=== PATIENT | female | born 1965 | race Caucasian/White ===

== ENCOUNTER 2018-05-04 12:35 | Observation (INO) | payer OTHER ==
[2018-05-04] MEDS: NS 0.9% 1000 ML* 2,000 ML IV ONE (13:03)
[2018-05-04 13:14] LABS: Hematocrit 41 % (35-47); Hemoglobin 14.1 g/dl (12.0-16.0); Mean Corpuscular HGB Conc 35 g/dl (31-36); Mean Corpuscular Hemoglobin 33 pg (27-31); Mean Corpuscular Volume 95 fL (80-97); Mean Platelet Volume 8.3 um3 (7.4-10.4); Platelet Count 162 10^3/ul (150-450); Red Blood Count 4.28 10^6/ul (4.0-5.4); Red Cell Distribution Width 14 % (10.5-15); White Blood Count 5.1 10^3/ul (3.5-10.8)
[2018-05-04 13:30] LABS: EGFR Non-African American 29.5 (>60)
[2018-05-04 13:38] LABS: ABS Basophils 0 10^3/ul (0-0.2); ABS Eosinophils 0 10^3/ul (0-0.6); ABS Lymphocytes 0.2 10^3/ul (1.0-4.8); ABS Monocytes 0 10^3/ul (0-0.8); ABS Neutrophils 4.8 10^3/ul (1.5-7.7)
[2018-05-04 13:40] LABS: Monocytes % 1 % (0-7)
--- NOTE | 2018-05-04 15:25 | RAD ---
CLINICAL HISTORY: Abdominal pain with nausea and vomiting COMPARISON: None TECHNIQUE: Oral contrast only CT examination of the abdomen and pelvis from the lung bases through the initial tuberosities. FINDINGS: VISUALIZED LUNG BASES: The visualized lung bases are grossly clear. There is no pleural effusion. ABDOMEN AND PELVIS: Evaluation of the solid organs and vasculature is limited without intravenous contrast. The liver exhibits homogenous hypoattenuation relative to the spleen. There are no focal masses or definite intrahepatic biliary duct dilatation. The spleen, pancreas and adrenal glands are grossly normal in appearance. The gallbladder is normal. The kidneys are normal in appearance without focal mass, calcification or signs of hydronephrosis. The oral contrast has progressed as far as the cecum. This limits evaluation of the more distal colon. The small and large bowel are not distended.The fluid-filled appendix measures just under 12 mm in diameter (axial image 48 and coronal image 57). There is infiltration of the surrounding periappendiceal mesenteric fat with trace fluid. There is no gross retroperitoneal or mesenteric lymphadenopathy. An intrauterine device is incidentally noted in appropriate position. The abdominal aorta and iliac arteries are normal in course and diameter. Degenerative changes include multilevel loss of intervertebral disc height involving the lower thoracic and lumbar spine, endplate sclerosis and vacuum disc phenomenon involving the lower lumbar spine.There are no sinister bone lesions. IMPRESSION: 1. CT findings are consistent with acute appendicitis. 2. Possible hepatic steatosis.
[2018-05-04] MEDS ORDERED: NS 0.9% 1000 ML* 2,000 ML IV ONE (16:00)
[2018-05-04] MEDS ORDERED: Piperacillin/Tazobac ADVAN(*) 3.375 GM in NS 0.9% 100 ML* 100 ML IVPB ONE (16:02)
[2018-05-04] MEDS: KCL 10 MEQ/50 ML IVPREMIX* 10 MEQ/50 ML BAG IV SCH ×3 (16:18→17:59)
[2018-05-04] MEDS ORDERED: Morphine VIAL* 4 MG/ML VIAL (1 ml vial) IV PRN (17:01)
[2018-05-04] MEDS ORDERED: Metoclopramide IV* 5 MG/ML 2 ML VIAL IV PRN (17:02)
[2018-05-04] MEDS ORDERED: Magnesium Sulfate 1 GM IV* 1 GM/100 ML BAG IV ONE (17:13)
[2018-05-04] MEDS: NS 0.9% 1000 ML* 1,000 ML IV SCH (17:56)
[2018-05-04] MEDS ORDERED: ceFAZolin 2 GM PREMIX (*) 2 GM/50 ML BAG IVPB ONE (19:30)
[2018-05-04] MEDS ORDERED: Bupivacaine 0.25% SDV* 30 ML ONE (19:43)
[2018-05-04] MEDS ORDERED: metroNIDAZOLE IV 500 MG/100ML* 500 MG/100 ML BAG IVPB ONE (20:00)
[2018-05-04] MEDS ORDERED: Atracurium* 10 MG/ML 10 ML VIAL ONE (20:04)
[2018-05-04] MEDS ORDERED: Succinylcholine* 20 MG/ML 10 ML VIAL ONE (20:04)
[2018-05-04] MEDS ORDERED: fentaNYL* 50 MCG/ML 2 ML VIAL (100 MCG VIAL) ONE ×2 (20:04→21:42)
[2018-05-04] MEDS ORDERED: Midazolam* 1 MG/ML 2 ML VIAL (2 MG) ONE (20:04)
[2018-05-04] MEDS ORDERED: Propofol* 10 MG/ML 20 ML BTL IV PUSH ONE (20:04)
--- NOTE | 2018-05-04 20:44 | HP ---
CC: Dr. 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 The patient described onset of diarrhea starting yesterday, one episode. This turned into abdominal pain. It was diffuse. She was able to get to sleep and when she woke up in the morning, she had severe pain at the right lower quadrant and woke up with which she describes as rigors. She also had nausea and vomiting. Pain is nonradiating at this point, mostly in the right lower quadrant. The patient describes similar pain in the past, approximately October of last year , when it lasted for only a couple of hours. PAST MEDICAL HISTORY: ADD. PAST SURGICAL HISTORY: C-sections on two occasions, one emergent. MEDICATIONS: Include: 1. Dextroamphetamine. 2. Propranolol as needed. ALLERGIES: She has no known drug allergies. FAMILY HISTORY: Noncontributory. No history of ulcerative colitis or Crohn's disease. SOCIAL HISTORY: She is a nonsmoker. She occasionally drinks. She is active. She is a physician. REVIEW OF SYSTEMS: Fevers and chills as described with rigors as described above. Nausea and vomiting as described. No dysuria. Positive diarrhea yesterday. The patient is passing flatus. Decreased appetite. No bleeding or clotting disorders. No complications with anesthesia. No metabolic disorders. PHYSICAL EXAMINATION GENERAL: She is alert and oriented x3. She is in mild distress. VITAL SIGNS: The patient's temperature is 99.4, T-max is 101; heart rate is 106 with blood pressure 116/70, she did have blood pressures as low as 70s in her initial time during the ER visit; respirations are 20 with an O2 sat of 94%. HEENT: Normocephalic, atraumatic. Sclerae are anicteric. Mucous membranes are dry. LUNGS: Clear to auscultation bilaterally. HEART: S1, S2. No murmurs appreciated. ABDOMEN: Soft, nondistended. Tender in the right lower quadrant with no rebound tenderness. Well-healed lower midline incision. No hernias or masses are noted. RECTAL: Exam not performed. EXTREMITIES: Within normal limits with no edema or cyanosis. DIAGNOSTIC STUDIES/LAB DATA: Show a white count of 5 with left shift and 7 bands; reference range 0% to 8%. Chemistry panel shows an elevated CRP of 107 with bilirubin elevated at 3.5 and a potassium of 3. She had elevated lactate of 4.6, which after hydration of approximately 3 L in the emergency room went to only 4.3. Her creatinine is 1.81 and we do not have a baseline. The patient underwent a CAT scan of the abdomen and pelvis. These images as well as the report were reviewed and are consistent with acute appendicitis with a dilated inflamed appendix. There is trace free fluid. No free air or abscess appreciated. EKG is reviewed. IMPRESSION AND PLAN: A 52-year-old female with what appears to be acute appendicitis based on CT scan, abdominal exam, and story consistent with this. However, the patient does show signs of dehydration given hypokalemia as well as what appears to be acute renal failure with elevated creatinine of 1.8, which we would not anticipate in this patient. She has received significant amount of fluid including three 10 mEq K riders. I do not think she warrants repeat labs at this point. I have recommended laparoscopic appendectomy to the patient, gone over the risks, benefits, and alternatives of diagnostic laparoscopy, appendectomy. The patient wished to proceed. We spoke about the possible complications which included, not limited to, bleeding, infection, abscess formation, need for additional procedures, injury to adjacent organs, and the possibility of open procedure. The patient understands and has agreed. I did not spend too much time discussing nonoperative management given that the patient appears ill. I think she will be best served in the OR with diagnostic laparoscopy. At this point, my concern is possibility of perforation. I have outlined this possibility to the patient. She will spend the night with us. We will give her another dose of antibiotics. The patient' s questions were answered. [id number]/[facility] #: [id number] [facility]
[2018-05-04] MEDS ORDERED: Phenylephrine INJ* 10 MG/ML 1 ML VIAL (10 MG) ONE (20:55)
[2018-05-04] MEDS ORDERED: Dexamethasone IV* 4 MG/ML 1 ML (4 MG) ONE (21:07)
[2018-05-04] MEDS ORDERED: DiMENhydriNATE IV* 50 MG/ML VIAL ONE (21:09)
[2018-05-04] MEDS ORDERED: Ondansetron INJ* 2 MG/ML VIAL IV PRN (21:12)
[2018-05-04] MEDS ORDERED: Ondansetron ODT TAB* 4 MG PO PRN (21:12)
[2018-05-04] MEDS ORDERED: Naloxone* 0.4 MG/ML 1 ML VIAL IV PRN (21:12)
[2018-05-04] MEDS ORDERED: HYDROmorphone INJ* 1 MG/ML CARPUJECT SYRINGE IV PRN (21:12)
[2018-05-04] MEDS ORDERED: Scopolamine 1.5 mg* PATCH TRANSDERM PRN (21:12)
--- NOTE | 2018-05-04 21:31 | BRIEFOPN ---
Brief Operative Note - Surgery Procedures: Procedures Pre-OP Diagnoses: acute appendicitis Post-op Diagnosis: same Procedure: Laparoscopic appendectomy Surgeon: Tyrone Asst: none Anethesia: GETA EBL: 50cc IVF: 2.5L crystalloid Specimen: [id number] Drains: none
[2018-05-04] MEDS ORDERED: Acetaminophen IV 1GM/100ML * 100 ML ONE (21:38)
[2018-05-04] MEDS: fentaNYL* 50 MCG/ML 2 ML VIAL (100 MCG VIAL) IV PRN ×4 (21:43→22:35)
[2018-05-04] MEDS ORDERED: oxyCODONE/Acetamin 5/325 MG* TAB ONE (22:20)
[2018-05-04] MEDS: oxyCODONE/Acetamin 5/325 MG* TAB PO PRN (22:21)
[2018-05-05] MEDS: Piperacillin/Tazobac ADVAN(*) 3.375 GM in NS 0.9% 100 ML* 100 ML IVPB SCH ×2 (00:06→09:05)
--- NOTE | 2018-05-05 00:59 | OP ---
CC: Bartolome Wright NP * DATE OF OPERATION: 05/04/18 - ROOM #331 DATE OF : 67 SURGEON: Ry Hansen MD [employer] DIRECTOR: None. ANESTHESIOLOGIST: Jesús Aldrich MD ANESTHESIA: General anesthesia. PRE-OP DIAGNOSIS: Acute appendicitis. POST-OP DIAGNOSIS: Acute appendicitis. OPERATIVE PROCEDURE: Laparoscopic appendectomy. BLOOD LOSS: 50 cc. FLUIDS: 2.5 L of crystalloid fluid given. SPECIMEN: Appendix, nonperforated. DRAINS: None. DESCRIPTION OF PROCEDURE: The patient was identified in the preoperative area, marked, and brought to the operating room and placed on the operating table in the supine position. Preoperative antibiotics were given. Sequential devices were placed on bilateral lower extremities. General anesthesia was induced. The patient's abdomen was clipped of hair and prepped and draped in a standard surgical fashion. Time-out was performed. A subcostal incision was made in the right upper quadrant about 2 fingerbreadths below the costal margin in the mid clavicular line. This was deepened down to the anterior fascia, which was elevated and a Veress needle was inserted into the abdominal cavity, which was then allowed to insufflate to a pressure of 15 mmHg. The patient tolerated the insufflation well. Veress needle was removed and a 12-mm trocar was inserted. The laparoscope was inserted through this and there was no evidence of injury from the trocar insertion or from the Veress needle. Additional trocars were then placed in the following position: A 5 mm in the periumbilical region. The patient was placed in a Trendelenburg position. There was murky fluid noted in the abdomen and additional 5-mm trocar was placed in a suprapubic position. Table was repositioned. A tip of an inflamed appendix was clearly identified. This was shortened, but thickened appendix that extended into an area between cecum and small bowel. Small bowel was reflected superiorly and lateral attachments were taken down with both sharp dissection and blunt dissection to identify better the lateral aspect of the cecum. This was then grasped and rotated medially. At this point, we could see the base of the appendix and a window was made through the mesentery, which was then taken with a 45-mm gillette JC stapling device. This allowed us to pull the inflamed but nonperforated appendix up more anteriorly. Additional mesoappendix was isolated and clipped with a large 10-mm clip. We then had a good area of the appendix with normal- appearing base and a 45-mm gillette JC stapling device was fired across this, taken care to not violate the area of the terminal ileum. The appendix was then placed in an endoscopic retrieval bag. There was some oozing, this was suctioned off, no identifiable bleeders were noted. We suctioned over the liver as well in the area of the pelvis. Right fallopian tube was identified; within normal limits. Next, the small bowel was run approximately 60 cm proximal to the terminal ileum. This appeared normal and intact. Next, the table was repositioned back to baseline and the appendix was removed through the right upper quadrant 12-mm port site. Next, the abdomen was allowed to collapse. Trocar was removed under direct vision. Upon removal, the periumbilical incision showed significant amount of bleeding, felt to be too much for just a skin bleeder. A 5-mm trocar was reinserted into the right upper quadrant port site and we could see there was bleeding around the site. We utilized an Endo Close device using a 0 Polysorb suture to reapproximate the fascia at this periumbilical site and for hemostasis. Hemostasis was achieved. The abdomen again was allowed to collapse. The trocar was removed and then all 3 skin incisions were reapproximated with 4-0 Monocryl subcuticular sutures. Steri-Strips and sterile dressing were applied. The patient tolerated the procedure well, was woken up in the OR and transferred to the PACU in stable condition. It should be noted that I did identify a small, approximately 1-cm hernia along the lower midline when we were placing the Endo Close device. This did not appear to have any contents and it was left alone. [id number]/[facility] #: [id number] [facility]
[2018-05-05] MEDS: oxyCODONE/Acetamin 5/325 MG* TAB PO PRN ×2 (01:48→07:30)
[2018-05-05] MEDS: NS 0.9% 1000 ML* 1,000 ML IV SCH (04:55)
[2018-05-05 05:35] LABS: Hematocrit 35 % (35-47); Hemoglobin 11.5 g/dl (12.0-16.0); Mean Corpuscular HGB Conc 33 g/dl (31-36); Mean Corpuscular Hemoglobin 32 pg (27-31); Mean Corpuscular Volume 97 fL (80-97); Mean Platelet Volume 8.9 um3 (7.4-10.4); Platelet Count 134 10^3/ul (150-450); Red Blood Count 3.61 10^6/ul (4.0-5.4); Red Cell Distribution Width 14 % (10.5-15); White Blood Count 14.9 10^3/ul (3.5-10.8)
[2018-05-05 05:42] LABS: ABS Basophils 0 10^3/ul (0-0.2); ABS Eosinophils 0 10^3/ul (0-0.6); ABS Lymphocytes 0.5 10^3/ul (1.0-4.8); ABS Monocytes 0.4 10^3/ul (0-0.8)
[2018-05-05 05:53] LABS: EGFR Non-African American 60.5 (>60)
[2018-05-05 06:23] LABS: ABS Nucleated RBC 0 10^3/ul; Eosinophil % 0 % (0-6); Lymphocyte % 3.4 % (25-47); Nucleated Red Blood Cells % 0
[2018-05-05] MEDS: Amphetamine MIXED SALT TAB* 10 MG TAB PO SCH ×2 (09:05→09:08)
[2018-05-05 09:58] VITALS: BP 89/61
--- NOTE | 2018-05-05 12:22 | DS ---
CC: [facility]; Bartolome Wright DISCHARGE SUMMARY: DATE OF ADMISSION: 05/04/18 DATE OF DISCHARGE: 05/05/18 HISTORY OF PRESENT ILLNESS: Ms. Jackman is a 52-year-old female who presented to the emergency [facility] complaints of abdominal pain, nausea, vomiting, and diarrhea, who was diagnosed with acute appendi citis based on CT scan and labs, and was taken to the operating room where she underwent a laparoscop ic appendectomy. Please see operative report for details. The patient was transferred to the PACU after a short stay in the surgical unit where she did well in the overnight period. The patient's course was complicated with elevated creatinine levels that nor malized with hydration. She also came with hypokalemia, which normalized after therapy. On postoperative day 1, physical examination was performed. She was afebrile, vital signs were stabl e, alert and oriented x3, in no apparent distress. Urine output was good. She was utilizing incenti ve spirometer. Her abdomen was soft, nondistended, with incisional tenderness. Dressings clean, dry , and intact. No calf tenderness. IMPRESSION: Postoperative day 1 from laparoscopic appendectomy with concern for a brief episode of b acteremia and a picture of systemic inflammatory response syndrome versus sepsis in a patient I would like to send home on a 5-day course of antibiotics. She will follow up in the office. This was dis cussed with her and questions were answered. [id number]/[facility] #: [id number]
--- NOTE | 2018-05-06 14:34 | ED ---
Leandro Rivera Julia, scribed for Mauro Azul MD on 05/04/18 at 1256 . Abdominal Pain/Female - HPI Summary HPI Summary: This patient is a 52 year old F presenting to [facility] accompanied by her with a chief complaint of abdominal pain since yesterday. She states that the pain began diffusely yesterday with loose stool. She states she ate a hot dog at 13:30 and vomited afterwards. Pain has worsened and localized today to the RLQ with fever, chills, and body aches. pain is 6/10 in severity. Diarrhea is currently resolved. Denies any back pain. No hx of appendectomy or cholecystectomy. - History of Current Complaint Chief Complaint: EDAbdPain Stated Complaint: ABD PAIN Time Seen by Provider: 05/04/18 12:47 Hx Obtained From: Patient Onset/Duration: Lasting Hours, Worse Since Timing: Constant Pain Intensity: 6 Pain Scale Used: 0-10 Numeric Location: Discrete At: RLQ Radiates: No Associated Signs and Symptoms: Positive: Fever, Vomiting, Diarrhea. Negative: Back Pain Allergies/Adverse Reactions: Allergies Allergy/AdvReac Type Severity Reaction Status Date / Time No Known Allergies Allergy Verified 05/04/18 12:43 Home Medications: Home Medications Cholecalciferol TAB* [Vitamin D TAB*] 15,000 unit PO SUWE 05/04/18 [History Confirmed 05/04/18] Dextroamphetamine/Amphetamine [Dextroamp-Amphetamin 10 mg Tab] 10 mg PO BID 09/11 [History Confirmed 05/04/18] Ibuprofen TAB* [Motrin TAB* 600 MG] 600 mg PO Q6H PRN 05/04/18 [History Confirmed 05/04/18] Propranolol TAB* [Inderal TAB*] 80 mg PO DAILY PRN 05/04/18 [History Confirmed 05/04/18] PMH/Surg Hx/FS Hx/Imm Hx Endocrine/Hematology History: Reports: Hx Diabetes EENT History: Denies: Hx Deafness - Surgical History Surgery Procedure, Year, and Place: hysterectomy Infectious Disease History: No Infectious Disease History: Denies: History Other Infectious Disease, Traveled Outside the [place] in Last 30 Days - Family History Known Family History: Negative: Diabetes - Social History Alcohol Use: Rare Substance Use Type: Reports: None Smoking Status (MU): Never Smoked Tobacco Review of Systems Positive: Fever, Chills Positive: Abdominal Pain, Vomiting, Diarrhea Musculoskeletal: Negative - back pain Positive: Myalgia All Other Systems Reviewed And Are Negative: Yes Physical Exam - Summary Physical Exam Summary: VITAL SIGNS: Reviewed. GENERAL: Patient is a well-developed and nourished female who is lying comfortable in the stretcher. Patient is not in any acute respiratory distress. HEAD AND FACE: No signs of trauma. No ecchymosis, hematomas or skull depressions. No sinus tenderness. EYES: PERRLA, EOMI x 2, No injected conjunctiva, no nystagmus. EARS: Hearing grossly intact. Ear canals and tympanic membranes are within normal limits. MOUTH: Oropharynx within normal limits. NECK: Supple, trachea is midline, no adenopathy, no JVD, no carotid bruit, no c- spine tenderness, neck with full ROM. CHEST: Symmetric, no tenderness at palpation LUNGS: Clear to auscultation bilaterally. No wheezing or crackles. CVS: Regular rate and rhythm, S1 and S2 present, no murmurs or gallops appreciated. ABDOMEN: Soft RLQ tenderness. No signs of distention. No rebound no guarding, and no masses palpated. Bowel sounds are normal. EXTREMITIES: FROM in all major joints, no edema, no cyanosis or clubbing. NEURO: Alert and oriented x 3. No acute neurological deficits. Speech is normal and follows commands. SKIN: Dry and warm Triage Information Reviewed: Yes Vital Signs On Initial Exam: Initial Vitals Temp Pulse Resp BP Pulse Ox 97.4 F 105 17 78/40 97 05/04/18 12:38 05/04/18 12:38 05/04/18 12:38 05/04/18 12:38 05/04/18 12:38 Vital Signs Reviewed: Yes Diagnostics - Vital Signs Vital Signs Temp Pulse Resp BP Pulse Ox 05/04/18 12:38 97.4 F 105 17 78/40 97 - Laboratory Lab Results: Lab Results 05/04/18 05/04/18 05/04/18 Range/Units 13:05 13:05 13:05 WBC 5.1 (3.5-10.8) 10^3/ul RBC 4.28 (4.0-5.4) 10^6/ul Hgb 14.1 (12.0-16.0) g/dl Hct 41 (35-47) % MCV 95 (80-97) fL MCH 33 H (27-31) pg MCHC 35 (31-36) g/dl RDW 14 (10.5-15) % Plt Count 162 (150-450) 10^3/ul MPV 8.3 (7.4-10.4) um3 Neut % (Auto) Not Reportable Lymph % (Auto) Not Reportable [place] % (Auto) Not Reportable Eos % (Auto) Not Reportable Baso % (Auto) Not Reportable Absolute Neuts (auto) 4.8 (1.5-7.7) 10^3/ul Absolute Lymphs (auto) 0.2 L (1.0-4.8) 10^3/ul Absolute Monos (auto) 0 (0-0.8) 10^3/ul Absolute Eos (auto) 0 (0-0.6) 10^3/ul Absolute Basos (auto) 0 (0-0.2) 10^3/ul Absolute Nucleated RBC Not Reportable Immature Gran % 7 (0-9) % Neutrophils % 89 H (38-83) % Band Neutrophils % 7 (0-8) % Lymphocytes % 3 L (25-47) % Monocytes % 1 (0-7) % Eosinophils % 0 (0-6) % Basophils % 0 (0-2) % Nucleated RBC % Not Reportable Abs Neuts (Manual) 4.5 (1.5-7.7) 10^3/ul Abs Lymphs (Manual) 0.2 L (1.0-4.8) 10^3/ul Abs Monocytes (Manual) 0.1 (0-0.8) 10^3/ul Absolute Eos (Manual) 0 (0-0.6) 10^3/ul Abs Basophils (Manual) 0 (0-0.2) 10^3/ul Normal RBC Morphology Normal (Normal) Sodium 134 L (139-145) mmol/L Potassium 3.0 L (3.5-5.0) mmol/L Chloride 100 L (101-111) mmol/L Carbon Dioxide 23 (22-32) mmol/L Anion Gap 11 (2-11) mmol/L BUN 11 (6-24) mg/dL Creatinine 1.81 H (0.51-0.95) mg/dL Est GFR ( Amer) 37.9 (>60) Est GFR (Non-Af Amer) 29.5 (>60) BUN/Creatinine Ratio 6.1 L (8-20) Glucose 126 H (70-100) mg/dL Lactic Acid 4.6 H* (0.5-2.0) mmol/L Calcium 9.5 (8.6-10.3) mg/dL Magnesium 1.3 L (1.9-2.7) mg/dL Total Bilirubin 3.50 H (0.2-1.0) mg/dL AST 36 (13-39) U/L ALT 31 (7-52) U/L Alkaline Phosphatase 102 (34-104) U/L C-Reactive Protein 107.34 H (< 5.00) mg/L Total Protein 6.6 (6.4-8.9) g/dL Albumin 3.7 (3.2-5.2) g/dL Globulin 2.9 (2-4) g/dL Albumin/Globulin Ratio 1.3 (1-3) Lipase 43 (11.0-82.0) U/L Result Diagrams: 05/05/18 05:05 05/05/18 05:05 Lab Statement: Any lab studies that have been ordered have been reviewed, and results considered in the medical decision making process. - CT A/P CT Interpretation Completed By: Radiologist - 1. CT findings are consistent with acute appendicitis. 2. Possible hepatic steatosis. ED Physician has reviewed this report. - EKG 1315 Cardiac Rate: NL EKG Rhythm: Sinus Rhythm - 84 BPM EKG Interpretation: no ST elevation, inverted T wave in III Abdominal Pain Fem Course/Dx - Course Course Of Treatment: 52 year old F presenting to [facility] accompanied by her with a chief complaint of abdominal pain since yesterday. She states that the pain began diffusely yesterday with loose stool and vomiting. Pain has worsened and localized today to the RLQ with fever, chills, and body aches. pain is 6/10 in severity. Diarrhea is currently resolved. Denies any back pain. No hx of appendectomy or cholecystectomy. CT A/P reveals, " 1. CT findings are consistent with acute appendicitis. 2. Possible hepatic steatosis. ED Physician has reviewed this report." as per radiologist. EKG reveals no acute findings. Test results without significant abnormalities except sodium of 134, Potassium of 3.0, creatinine 1.81, glucose 126, lactic acid of 4.6, magnesium 1.3, and CRP 107.34. Patient initially given 2L of IV fluids since patient was hypotensive; she responded well and blood pressure improved to 110/60. She was also given IV Potassium, Magnesium IV and Zosyn, since elevated lactic acid. She became hypotensive again and he placed in Trendelenberg and given more IV fluids. Discussed case with Dr. Hansen for surgery, he accepts this patient for admission. At this time she is hemodynamicably stable and is alert and oriented x3. - Diagnoses Provider Diagnoses: Acute appendicitis - Provider Notifications Discussed Care Of Patient With: Ry Hansen - surgery Time Discussed With Above Provider: 16:44 Instructed by Provider To: Admit As Inpatient Discharge - Sign-Out/Discharge Documenting (check all that apply): Discharge/Admit/Transfer - Discharge Plan Condition: Stable Disposition: ADMITTED TO [facility] - Billing Disposition and Condition Condition: STABLE Disposition: Admitted to [facility] The documentation as recorded by the Leandro jennings Julia accurately reflects the service I personally performed and the decisions made by Jorge Alberto whatley Walter, MD.
[2018-05-07] MEDS ORDERED: Scopolamine PATCH Remove* 1 NOTE MISC PATCH OFF ONE (21:14)
== END 2018-05-05 11:00 | disposition home or self-care (01) ==
LOC: ED 12:35 → INTOOBSV 17:06 → SSU 17:06
PROVIDERS: ADMIT Surgery; ATTEND Surgery
PROC: 0DTJ4ZZ Resection of Appendix, Percutaneous Endoscopic Approach (ICD-10-PCS; principal; 2018-05-04 20:00)
DX: K35.80 Unspecified acute appendicitis (principal); R10.9 Unspecified abdominal pain; R10.31 Right lower quadrant pain; R19.7 Diarrhea, unspecified; R50.9 Fever, unspecified
CPT/HCPCS: 36415; 74176; 80048; 80053; 83605; 83690; 83735; 84100; 85025; 86140; 88304; 93005; 99284; A9270-GY; C1776; G0378; J0330; J0690; J1100; J1240; J2250; J2270; J2543; J2704; J3010; J3475; J3480; J3490

== ENCOUNTER 2018-05-06 20:46 | Observation (INO) | payer OTHER ==
--- NOTE | 2018-05-06 22:15 | RAD ---
INDICATION: Fever and shortness of breath. COMPARISON: Comparison is made with a prior chest x-ray study from July 04, 2010. TECHNIQUE: Dual-energy PA and lateral views of the chest were obtained. FINDINGS: The heart is within normal limits in size. Mediastinal and hilar contours appear within normal limits. There is a small infiltrate at the right lung base. The left lung appears clear. There is suggestion of trace bilateral pleural effusions. IMPRESSION: 1. SMALL RIGHT BASILAR INFILTRATE. 2. TRACE BILATERAL PLEURAL EFFUSIONS.
[2018-05-06 22:25] LABS: ABS Basophils 0 10^3/ul (0-0.2); ABS Eosinophils 0.1 10^3/ul (0-0.6); ABS Lymphocytes 0.6 10^3/ul (1.0-4.8); ABS Monocytes 0.5 10^3/ul (0-0.8); ABS Nucleated RBC 0 10^3/ul; Eosinophil % 1.9 % (0-6); Hematocrit 33 % (35-47); Hemoglobin 11.3 g/dl (12.0-16.0); Lymphocyte % 8.3 % (25-47); Mean Corpuscular HGB Conc 34 g/dl (31-36); Mean Corpuscular Hemoglobin 33 pg (27-31); Mean Corpuscular Volume 95 fL (80-97); Mean Platelet Volume 8.7 um3 (7.4-10.4); Nucleated Red Blood Cells % 0.3; Platelet Count 134 10^3/ul (150-450); Red Blood Count 3.47 10^6/ul (4.00-5.40); Red Cell Distribution Width 13 % (10.5-15); White Blood Count 7.3 10^3/ul (3.5-10.8)
[2018-05-06 22:39] LABS: INR 0.9 (0.77-1.02)
[2018-05-06 22:44] LABS: EGFR Non-African American 68.6 (>60)
[2018-05-06] MEDS ORDERED: NS 0.9% 1000 ML* 1,000 ML IV ONE (22:53)
[2018-05-06] MEDS ORDERED: cefTRIAXone(*) 1 GM in NS 0.9% 50 ML* 50 ML IVPB ONE (22:57)
[2018-05-06] MEDS ORDERED: Azithromycin IV(*) 500 MG in NS 0.9% 250 ML* 250 ML IVPB ONE (22:57)
--- NOTE | 2018-05-06 23:11 | ED ---
HPI Febrile Illness - HPI Summary HPI Summary: 52F presents with fever and shortness of breath for past day. On Saturday she developed abdominal pain that got worse. She was seen here on Saturday diagnosed with appendicitis. She had elevated lactate and white blood cell count the time. Gave her couple doses of Zosyn and removed appendix by Dr cid and she was discharged on Saturday on Augmentin. She has been taking Augmentin missed one dose today as she vomited it up. She states that she is has abdominal pain around incision site but that has much improved. She states that she's been more short of breath especially with daily activities. She states she's been occasionally using her incentive spiromety but not as much as she should. She states that she was having very extreme chills today and had to sleep more than normal. States she's been having fever. She took Tylenol prior to arrival. She states she feels very fatigued. She denies any chest pain. She has been having an occasional cough. No rash that she's noticed around the incision site. incision is still intact. nonsmoker. no history of asthma or copd. - History of Current Complaint Chief Complaint: EDWeakness Time Seen by Provider: 05/06/18 22:53 Pain Intensity: 5 - Additional Pertinent History Primary Care Physician: [id number] - Allergy/Home Medications Allergies/Adverse Reactions: Allergies Allergy/AdvReac Type Severity Reaction Status Date / Time No Known Allergies Allergy Verified 05/06/18 20:59 PMH/Surg Hx/FS Hx/Imm Hx Endocrine/Hematology History: Reports: Hx Diabetes GI History: Reports: Hx Gastroesophageal Reflux Disease, Other GI Disorders - appy Sensory History: Reports: Hx Contacts or Glasses Denies: Hx Deafness, Hx Hearing Aid Opthamlomology History: Reports: Hx Contacts or Glasses - Surgical History Surgery Procedure, Year, and Place: hysterectomy Hx Anesthesia Reactions: No Infectious Disease History: No Infectious Disease History: Denies: History Other Infectious Disease, Traveled Outside the [place] in Last 30 Days - Family History Known Family History: Positive: None Negative: Diabetes - Social History Alcohol Use: Rare Alcohol Amount: 2 TIME A WEEK Substance Use Type: Reports: None Smoking Status (MU): Never Smoked Tobacco Review of Systems Positive: Fever Negative: Chest Pain Positive: Shortness Of Breath, Cough Positive: Abdominal Pain All Other Systems Reviewed And Are Negative: Yes Physical Exam Triage Information Reviewed: Yes Vital Signs On Initial Exam: Initial Vitals Temp Pulse Resp BP Pulse Ox 98.6 F 71 16 125/93 92 05/06/18 20:54 05/06/18 20:54 05/06/18 20:54 05/06/18 20:54 05/06/18 20:54 Vital Signs Reviewed: Yes Appearance: Positive: Well-Appearing Skin: Positive: Warm, Dry Head/Face: Positive: Normal Head/Face Inspection Eyes: Positive: Normal, EOMI, FLO, Conjunctiva Clear ENT: Positive: Pharynx normal Neck: Positive: Supple, Nontender, No Lymphadenopathy. Negative: Nuchal Rigidity Respiratory/Lung Sounds: Positive: Clear to Auscultation, Breath Sounds Present Cardiovascular: Positive: Normal, RRR Abdomen Description: Positive: Soft, Other: - incision sites CTA. no erythema, mild tenderness around incision sites Bowel Sounds: Positive: Present Musculoskeletal: Positive: Normal Neurological: Positive: Normal Psychiatric: Positive: Normal Diagnostics - Vital Signs Vital Signs Temp Pulse Resp BP Pulse Ox 05/06/18 22:00 63 91 05/06/18 21:57 60 91 05/06/18 21:55 61 133/92 90 05/06/18 20:54 98.6 F 71 16 125/93 92 - Laboratory Lab Results: Lab Results 05/06/18 05/06/18 05/06/18 Range/Units 22:18 22:18 22:18 WBC 7.3 (3.5-10.8) 10^3/ul RBC 3.47 L (4.00-5.40) 10^6/ul Hgb 11.3 L (12.0-16.0) g/dl Hct 33 L (35-47) % MCV 95 (80-97) fL MCH 33 H (27-31) pg MCHC 34 (31-36) g/dl RDW 13 (10.5-15) % Plt Count 134 L (150-450) 10^3/ul MPV 8.7 (7.4-10.4) um3 Neut % (Auto) 81.9 (38-83) % Lymph % (Auto) 8.3 L (25-47) % Sibley % (Auto) 7.3 H (0-7) % Eos % (Auto) 1.9 (0-6) % Baso % (Auto) 0.6 (0-2) % Absolute Neuts (auto) 6.0 (1.5-7.7) 10^3/ul Absolute Lymphs (auto) 0.6 L (1.0-4.8) 10^3/ul Absolute Monos (auto) 0.5 (0-0.8) 10^3/ul Absolute Eos (auto) 0.1 (0-0.6) 10^3/ul Absolute Basos (auto) 0 (0-0.2) 10^3/ul Absolute Nucleated RBC 0 10^3/ul Nucleated RBC % 0.3 INR (Anticoag Therapy) (0.77-1.02) APTT (26.0-36.3) seconds Sodium 135 L (139-145) mmol/L Potassium 3.4 L (3.5-5.0) mmol/L Chloride 102 (101-111) mmol/L Carbon Dioxide 27 (22-32) mmol/L Anion Gap 6 (2-11) mmol/L BUN 6 (6-24) mg/dL Creatinine 0.87 (0.51-0.95) mg/dL Est GFR ( Amer) 88.3 (>60) Est GFR (Non-Af Amer) 68.6 (>60) BUN/Creatinine Ratio 6.9 L (8-20) Glucose 100 (70-100) mg/dL Lactic Acid 0.7 (0.5-2.0) mmol/L Calcium 9.0 (8.6-10.3) mg/dL Total Bilirubin 0.90 D (0.2-1.0) mg/dL AST 102 H (13-39) U/L ALT 50 (7-52) U/L Alkaline Phosphatase 108 H (34-104) U/L C-Reactive Protein 90.57 H (< 5.00) mg/L Total Protein 6.0 L (6.4-8.9) g/dL Albumin 3.2 (3.2-5.2) g/dL Globulin 2.8 (2-4) g/dL Albumin/Globulin Ratio 1.1 (1-3) //18 Range/Units 22:18 WBC (3.5-10.8) 10^3/ul RBC (4.00-5.40) 10^6/ul Hgb (12.0-16.0) g/dl Hct (35-47) % MCV (80-97) fL MCH (27-31) pg MCHC (31-36) g/dl RDW (10.5-15) % Plt Count (150-450) 10^3/ul MPV (7.4-10.4) um3 Neut % (Auto) (38-83) % Lymph % (Auto) (25-47) % Sibley % (Auto) (0-7) % Eos % (Auto) (0-6) % Baso % (Auto) (0-2) % Absolute Neuts (auto) (1.5-7.7) 10^3/ul Absolute Lymphs (auto) (1.0-4.8) 10^3/ul Absolute Monos (auto) (0-0.8) 10^3/ul Absolute Eos (auto) (0-0.6) 10^3/ul Absolute Basos (auto) (0-0.2) 10^3/ul Absolute Nucleated RBC 10^3/ul Nucleated RBC % INR (Anticoag Therapy) 0.90 (0.77-1.02) APTT 29.9 (26.0-36.3) seconds Sodium (139-145) mmol/L Potassium (3.5-5.0) mmol/L Chloride (101-111) mmol/L Carbon Dioxide (22-32) mmol/L Anion Gap (2-11) mmol/L BUN (6-24) mg/dL Creatinine (0.51-0.95) mg/dL Est GFR ( Amer) (>60) Est GFR (Non-Af Amer) (>60) BUN/Creatinine Ratio (8-20) Glucose (70-100) mg/dL Lactic Acid (0.5-2.0) mmol/L Calcium (8.6-10.3) mg/dL Total Bilirubin (0.2-1.0) mg/dL AST (13-39) U/L ALT (7-52) U/L Alkaline Phosphatase (34-104) U/L C-Reactive Protein (< 5.00) mg/L Total Protein (6.4-8.9) g/dL Albumin (3.2-5.2) g/dL Globulin (2-4) g/dL Albumin/Globulin Ratio (1-3) Result Diagrams: 05/06/18 22:18 05/06/18 22:18 Lab Statement: Any lab studies that have been ordered have been reviewed, and results considered in the medical decision making process. - CT cta CT Interpretation: No Acute Changes - no PE. 6mm nodule right lower lobe nodule. partial atelectasis bilateral lungs CT Interpretation Completed By: Radiologist Course/Dx - Course Course Of Treatment: 52F presents with fever and shortness of breath for past day. On Saturday she developed abdominal pain that got worse. She was seen here on Saturday diagnosed with appendicitis. She had elevated lactate and white blood cell count the time. Gave her couple doses of Zosyn and removed appendix by Dr cid and she was discharged on Saturday on Augmentin. She has been taking Augmentin missed one dose today as she vomited it up. She states that she is has abdominal pain around incision site but that has much improved. She states that she's been more short of breath especially with daily activities. She states she's been occasionally using her incentive spiromety but not as much as she should. She states that she was having very extreme chills today and had to sleep more than normal. States she's been having fever. She took Tylenol prior to arrival. She states she feels very fatigued. She denies any chest pain. She has been having an occasional cough. No rash that she's noticed around the incision site. incision is still intact. nonsmoker. no history of asthma or copd. on exam lungs clear to auscultation. Patient has been satting in the high 80s low 90s. On 2 L as in the high 90s. wbc normal. CRP elevated. urine normal. Chest x-ray shows infiltrate on the right. discussed with dr anderson. got CTA due to desats. CTA shows 6mm nodule right loewr lobe. no PE. partial atelectasis bilateral lungs. - Febrile Illness Differential Diagnoses: Cellulitis, Pneumonia, Other: - PE - Diagnoses Provider Diagnoses: Atelectasis, Fever Discharge - Sign-Out/Discharge Documenting (check all that apply): Discharge/Admit/Transfer - Discharge Plan Condition: Stable Disposition: ADMITTED TO [facility] Referrals: Inessa Campa MD [Primary Care Provider] - - Billing Disposition and Condition Condition: STABLE Disposition: Admitted to [facility]
[2018-05-07] MEDS ORDERED: Iodixanol* (CONTRAST) 320 MG/ML 100 ML SDV IV ONE (00:18)
[2018-05-07] MEDS ORDERED: NS 0.9% 50 ML* 50 ML ONE (00:29)
[2018-05-07] MEDS ORDERED: oxyCODONE/Acetamin 5/325 MG* TAB PO ONE (00:52)
[2018-05-07] MEDS ORDERED: oxyCODONE/Acetamin 5/325 MG* TAB ONE (00:53)
[2018-05-07 01:18] LABS: Urine Appearance Clear; Urine Blood Negative (Negative); Urine Color Straw; Urine Ketones Negative (Negative); Urine Protein Negative (Negative); Urine Specific Gravity 1.003 (1.010-1.030); Urine Urobilinogen Negative (Negative)
[2018-05-07] MEDS ORDERED: Acetaminophen TAB* 325 MG PO PRN (02:02)
[2018-05-07] MEDS ORDERED: Ondansetron 40 MG VIAL* 2 MG/ML 20 ML VIAL IV PRN (02:02)
[2018-05-07] MEDS ORDERED: Al Hydrox/Mg Hydrox/Simet LIQ* 30 ML UDC PO PRN (02:02)
[2018-05-07] MEDS ORDERED: Propranolol TAB* 80 MG PO PRN (02:04)
[2018-05-07] MEDS: oxyCODONE/Acetamin 5/325 MG* TAB PO PRN ×2 (05:20→10:49)
[2018-05-07] MEDS: Heparin VIAL(*) 5000 UNITS/ML VIAL (FIVE THOUSAND) SUBCUT SCH ×2 (05:26→13:10)
[2018-05-07 06:24] LABS: EGFR Non-African American 70.5 (>60)
--- NOTE | 2018-05-07 07:56 | RAD ---
INDICATION: Chest pain. Short of breath. Evaluate for pulmonary embolus. COMPARISON: Chest x-ray May 06, 2018 TECHNIQUE: Axial source images were obtained from the thoracic inlet to the hemidiaphragms following administration of [address] angiographic technique was utilized. Coronal and sagittal reconstructed images were acquired. CHEST FINDINGS: Neck/thyroid: The visualized neck to include the thyroid appear normal. Chest wall: There are no acute abnormalities of the bony thorax or chest wall. There is prior cervical fusion There is bilateral augmentation mammoplasty There is no supraclavicular, infraclavicular, or axillary lymphadenopathy. Lungs : There is mild bibasilar atelectasis. There is a nodular, 6 mm focus in the right lung base. This could be reevaluated with noncontrast CT examination of the chest in 6 months. The pulmonary interstitium appears normal. There are no endobronchial lesions. Cardiomediastinal structures: There is no CT evidence of acute pulmonary embolic disease. The heart is normal in size. There is no pericardial effusion. There is no evidence of aortic aneurysm or dissection. There is no mediastinal or hilar adenopathy. The esophagus appears normal. Pleura : Small bilateral pleural effusions. Other: None. IMPRESSION: NO CT EVIDENCE OF ACUTE PULMONARY EMBOLIC DISEASE. LOW SUSPICION 6 MM NODULE RIGHT LUNG BASE. SMALL BILATERAL EFFUSIONS.
[2018-05-07] MEDS: Ibuprofen TAB* 600 MG PO PRN ×2 (08:05→17:32)
--- NOTE | 2018-05-07 08:27 | HP ---
CC: Inessa Campa MD * HISTORY AND PHYSICAL: DATE OF ADMISSION: 05/07/18 TIME OF EVALUATION: 0200. PRIMARY CARE PHYSICIAN: Inessa Campa MD CHIEF COMPLAINT: Shortness of breath. HISTORY OF PRESENT ILLNESS: This is a 52-year-old female with an unremarkable past medical history who just underwent an appendectomy for acute appendicitis on 05/04/18, who returned to the emergency room this evening for not feeling well for most of the day. The patient states her initial symptoms for her acute appendicitis began on 05/03/18 with nausea, vomiting, and diarrhea. She was admitted by the surgical team on the 05/04/18 and had her laparoscopic appendectomy that evening and she was discharged home the following day. She states on that admission, she was feeling short of breath too and she noted her oxygen was low at that time. No significant cough, no chest pain. She did vomit up one of her Augmentin doses and appears to have taken a total of three doses of Augmentin that she was discharged home on. She was feeling unwell most of the day today with chills and a temperature as high as 103.2. Her abdominal pain has improved. She is still sore, but does not feel worsening pain. She has had liquid stool, which she told was going to happen as they irrigated her bowel. Around 1 p.m. this afternoon, she has had photophobia and felt achy. She denies any meningismus signs, no headaches, no rash. She has had decrease in intake. Otherwise, review of systems are negative. In the emergency room, the patient had labs and imaging. She was noted to have low oxygen saturation in the low 90s. She was given a liter of fluid, Percocet , ceftriaxone, azithromycin, and referred to the hospitalist service for further evaluation. PAST MEDICAL HISTORY: 1. ADD. 2. Exercise-induced asthma. 3. As mentioned, acute appendicitis and appendectomy on 05/04/18. 4. History of two C-sections. 5. History of cervical discectomy and bilateral breast implants. MEDICATIONS: 1. Propranolol 80 mg p.o. daily as needed. 2. Percocet 1 tab q. 4 hours as needed. 3. Ibuprofen 600 mg every 6 hours as needed. 4. Dextroamphetamine 10 mg p.o. b.i.d. 5. Vitamin D 15,000 units Saturday, Saturday. 6. Augmentin 875 p.o. b.i.d. ALLERGIES: No known drug allergies. SOCIAL HISTORY: No smoking, occasional alcohol use. No illicit drug use. 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 Her mother Leisa and her friend, Bartolome, are her healthcare proxies. 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 FAMILY HISTORY: Reviewed and noncontributory. REVIEW OF SYSTEMS: A 14-point review of systems as mentioned in the HPI, otherwise negative. PHYSICAL EXAMINATION GENERAL: No acute distress. Resting comfortably with her friend at the bedside. VITAL SIGNS: Temp is 98.9, pulse rate 62, respiratory rate 16, oxygen saturation 92% on 2 L, blood pressure 126/89. HEENT: Head normocephalic. Pupils are equal and reactive. Oropharynx: Mucous membranes are moist. Some mild posterior oropharynx erythema. NECK: Supple. No lymphadenopathy. RESPIRATORY: Clear to auscultation. No wheezing, rhonchi, or rales. CARDIAC: Regular rate and rhythm. No murmurs, rubs or gallops. ABDOMEN: Positive bowel sounds, soft, nondistended. Some diffuse tenderness. No rebound or guarding. Her two laparoscopic incisions are clear, dry, intact. She has some mild, surrounding ecchymosis. EXTREMITIES: No clubbing, cyanosis, or edema. +2 DPs. NEUROLOGIC: Alert and oriented x3. No gross focal neurologic deficits. DIAGNOSTIC STUDIES/LAB DATA: White count 7.3, hemoglobin 11.3, hematocrit 33, platelets 134, INR 0.9. Sodium 135, potassium 3.4, chloride 102, bicarb 27, BUN 6, creatinine 0.87. CRP is 90. AFT of 50, AST is 102. Urine unremarkable. Radiographic data: Chest x-ray, small right basilar infiltrate, trace bilateral pleural effusions. CT of the chest shows 6-mm nodule, right lower lobe, no PE. Small bilateral pleural effusions, partial atelectasis of bilateral lungs. ASSESSMENT AND PLAN: This is a 52-year-old female who underwent laparoscopic appendectomy 2 days ago, who presents to the emergency room with shortness of breath and feeling unwell. 1. Shortness of breath. Assessment: The patient's CTA rules out a PE. She does have a small bilateral pleural effusion with partial bilateral atelectasis , no findings of pneumonia. She has no white count, her CRP is trending down. There is no focal finding of infection. Per Dr. Hansen's report on his discharge summary, there was concern for possible bacteremia and she was sent home on Augmentin. No blood cultures were obtained during that admission. She did get blood cultures drawn in the emergency room this evening. No findings consistent with sepsis on this admission. Plan: We will admit her to the ____ _ unit for observation to evaluate, to monitor her oxygen levels and to rule out any further compromise of her respiratory symptoms. We will continue her on incentive spirometer, we will continue her on Augmentin. We will contact Surgery regarding her admission, place her on LR at 100 and follow up on her blood culture. on CTA, the patient was noted to have a 6-mm nodule in the right lower lobe. Recommend follow up with her outpatient primary care provider. 2. Chronic medical problems. Resume her home medications as prescribed. Elevated LFTs. The patient is noted to have AST and a rise in her ALT, improvement of her bilirubin. It appears that she does have some evidence of hepatic steatosis on her CAT scan based on her prior admission. We will repeat her CMP in the morning to make sure there is no significant rise in these values. 3. FEN. [address] her on a regular diet. 4. DVT prophylaxis. The patient scores moderate risk, place her on heparin subcu t.i.d. PATIENT TIME: Greater than 45 minutes was spent doing history and physical, greater than half time was spent in direct patient contact. [id number]/[facility] #: [id number] REY
[2018-05-07] MEDS ORDERED: Amphetamine MIXED SALT TAB* 10 MG TAB PO SCH (09:00)
[2018-05-07] MEDS ORDERED: Amoxicillin/Clavulanate TAB* 875 MG PO SCH (09:00)
[2018-05-07] MEDS ORDERED: Cholecalciferol TAB* 1000 UNITS PO SCH (09:00)
[2018-05-07] MEDS ORDERED: Furosemide TAB* 40 MG PO ONE (10:58)
--- NOTE | 2018-05-07 11:49 | CONS ---
CC: Bartolome Wright NP; [facility] * SURGICAL CONSULTATION DATE OF CONSULT: 05/07/2018. HISTORY OF PRESENT ILLNESS: I was contacted by the Hospitalist Service who admitted Philly Jackman, a 52-year-old female, postop day three from a laparoscopic appendectomy, pathology is pending, for acute appendicitis. The patient was admitted to my service over the weekend with SIRS, bordering on sepsis and an acute appendicitis. She was taken to the operating room and underwent a laparoscopic appendectomy. Please see operative report for full details. In the postoperative period, she was maintained on antibiotics and discharged home postoperative day one with a five day course of antibiotics. The patient states that she was taking it slow, not doing too much, but had worsening shortness of breath and presented to the hospital for this purpose. In the hospital, she was worked up with x-ray and then a CT angiogram. There was no evidence of PE, but did have atelectasis and bilateral effusions. She was admitted to the Hospitalist Service for observation. When I saw the patient, she was not complaining of any significant abdominal pain, just mostly in her umbilical incision sites. She did have some musculoskeletal discomfort throughout after sleeping in the hospital bed according to the patient. She does describe having fevers at home of 102. She has not been febrile in the hospital yet. She has been tolerating diet, denying any nausea or vomiting. She has been passing flatus and only having small bowel movements. PHYSICAL EXAMINATION: On physical exam, she is well-appearing, in no apparent distress, afebrile, vital signs are stable. HEENT: Normocephalic, atraumatic. Sclerae anicteric. Mucus membranes are moist. Abdomen: Soft, mild distention, tender at the incision sites which show no erythema, but do show ecchymosis at all three incisions. Steri-Strips are in place. No rebound tenderness. Rectal exam not performed. No CVA tenderness. Extremities: 1+ pitting edema at the left lower leg and mild edema at the right. IMPRESSION: Postoperative day three laparoscopic appendectomy for a patient with a SIRS and sepsis response at the time of surgery. She is diagnosed with pleural effusions and atelectasis and this may just be a cycle of fluid and inflammatory response. I feel that this is less likely to be an abscess formation and indeed it is somewhat early to do a work-up for this purpose. I believe the patient would benefit from some Lasix and turning off her IV fluids. She can get a diet and repeat labs in the morning. I will continue to follow. [id number]/[facility] #: [id number] REY
[2018-05-07 16:57] VITALS: BP 148/87
--- NOTE | 2018-05-08 09:42 | DS ---
CC: Dr. Campa * DISCHARGE SUMMARY: DATE OF ADMISSION: 05/07/18 DATE OF DISCHARGE: 05/07/18 PRIMARY CARE PHYSICIAN: Dr. Campa. PRINCIPAL DISCHARGE DIAGNOSES: 1. Acute hypoxic respiratory failure. 2. Pulmonary nodule. 3. Postop day #4, laparoscopic appendectomy. SECONDARY DISCHARGE DIAGNOSES: 1. Attention deficit hyperactivity disorder. 2. Exercise-induced asthma. DISCHARGE MEDICATIONS: 1. Propranolol 80 mg daily. 2. Ibuprofen 600 mg q.6 p.r.n. pain. 3. Vitamin D 15,000 units Saturday and Saturday. 4. Adderall 10 mg b.i.d. 5. Augmentin 875 mg b.i.d. for 6 more days. 6. Percocet 1 tab q.4 p.r.n. pain. DIET: As tolerated. HOSPITAL COURSE BY PROBLEM: 1. Ms. Jackman presented to the emergency department 4 days after a laparoscopic appendectomy with dyspnea on exertion. Please see Dr. Wylie's H and P for full description of the history of present illness in the emergency department. She was found to be 89% on room air and was found to have small pleural effusions bilaterally. She was placed on 2 L nasal cannula. She was given Lasix 40 mg p.o. and felt much better after taking p.o. Lasix. Of note, her in's and out's are inaccurate, so I do not know the output effect the p.o. Lasix had; however, she was symptomatically improved and her ambulatory pulse ox on the afternoon of 05/07/18 and pulse ox remained above 89%. When ambulating, the patient had no dyspnea and requested discharge to home. She is being discharged on the afternoon of 05/07/18 and instructed to continue using her incentive spirometer. 2. Postop day #4 from a laparoscopic appendectomy. She was evaluated by Dr. Hansen to rule out an intraabdominal process and given her reported fever at home , he recommended continuing Augmentin as prescribed and to follow up with him in the office next week. 3. Pulmonary nodule. A 6 mm pulmonary nodule was incidentally found on a CT scan. This finding was discussed with Ms. Jackman. She was instructed to have a repeat CT scan in 6 months. She is low risk for malignancy. 4. ADHD. She was continued on Adderall. DISPOSITION: Ms. Jackman is discharged to home in fair condition. She is to continue incentive spirometry, Augmentin for 6 more days and Percocet as needed. She has a followup appointment with Dr. Hansen next week and she is instructed to make a followup appointment with her PCP within 2 weeks. She is instructed to return to the emergency department should she developed fevers, abdominal pain, shortness of breath, orthopnea or dyspnea on exertion or chest pain. [id number]/[facility] #: [id number] REY
== END 2018-05-07 18:15 | disposition home or self-care (01) ==
LOC: ED 20:46 → MED 05-07 02:02
PROVIDERS: ADMIT Pediatrics; ATTEND Internal Medicine
DX: J96.01 Acute respiratory failure with hypoxia (principal); R91.1 Solitary pulmonary nodule; Z90.89 Acquired absence of other organs; F90.9 Attention-deficit hyperactivity disorder, unspecified type; R50.9 Fever, unspecified; R06.02 Shortness of breath; E11.9 Type 2 diabetes mellitus without complications; R10.9 Unspecified abdominal pain
CPT/HCPCS: 36415; 71046; 71275; 80053; 81003; 83605; 85025; 85610; 85730; 86140; 87040; 99284; A9270-GY; G0378; J0456; J0696; J1644

== ENCOUNTER 2021-01-21 10:14 | Inpatient (IN) ==
[2021-01-21 14:58] LABS: ABS Lymphocytes 1.2 10^3/ul (1.0-4.8); ABS Monocytes 0.6 10^3/ul (0-0.8); ABS Neutrophils 7.6 10^3/ul (1.5-7.7); Eosinophil % 0.2 %; Hematocrit 42 % (35-47); Hemoglobin 15.5 g/dL (12.0-16.0); Lymphocyte % 12.8 %; Mean Corpuscular HGB Conc 37 g/dL (31-36); Mean Corpuscular Hemoglobin 36 pg (27-31); Mean Corpuscular Volume 96 fL (80-97); Mean Platelet Volume 9.1 fL (7.4-10.4); Platelet Count 159 10^3/uL (150-450); Red Blood Count 4.36 10^6 /uL (3.70-4.87); Red Cell Distribution Width 14 % (10-15); White Blood Count 9.5 10^3/uL (3.5-10.8)
[2021-01-21] MEDS ORDERED: NS 0.9% 1000 ml BAG 1,000 ML IV ONE ×2 (15:04→18:18)
[2021-01-21] MEDS ORDERED: Ondansetron 4 mg VIAL 2 MG/ML 2 ml VIAL IV ONE ×2 (15:04→16:27)
[2021-01-21 16:07] LABS: ALT 60 U/L (7-52); Albumin 4.3 g/dL (3.2-5.2); Albumin/Globulin Ratio 1.3 (1-3); Alkaline Phosphatase 55 U/L (34-104); Blood Urea Nitrogen 16 mg/dL (6-24); C Reactive Protein 2.43 mg/L (<8.01); CO2 Carbon Dioxide 21 mmol/L (22-32); Calcium 8.2 mg/dL (8.6-10.3); Globulin 3.2 g/dL (2-4); Glucose 112 mg/dL (70-100); Lipase 728 U/L (11.0-82.0); Total Protein 7.5 g/dL (6.4-8.9)
[2021-01-21 16:13] LABS: BUN/Creatinine Ratio 11.3 (8-20); EGFR African American 46.6 (>60); EGFR Non-African American 38.5 (>60)
[2021-01-21] MEDS ORDERED: Iodixanol (CONTRAST) 320 MG/ML 100 ML SDV IV ONE (16:39)
[2021-01-21 17:54] LABS: HDL Cholesterol 16.8 mg/dL
[2021-01-21] MEDS ORDERED: Furosemide 20 mg/2 ml IV VIAL IV ONE (18:07)
[2021-01-21 18:13] LABS: Urine Appearance Clear; Urine Bilirubin Negative (Negative); Urine Blood Negative (Negative); Urine Color Yellow; Urine Glucose Negative (Negative); Urine Ketones Negative (Negative); Urine Nitrite Negative (Negative); Urine Protein Negative (Negative); Urine Specific Gravity 1.043 (1.010-1.030); Urine Urobilinogen Negative (Negative)
[2021-01-21] MEDS ORDERED: Calcium Gluconate 1 GM in NS 0.9% 50 ML 50 ML IV ONE (18:16)
[2021-01-21] MEDS ORDERED: CALCIUM GLUCONATE 1GM/50ML NS 1 GM/50 ML BAG IV ONE (19:00)
[2021-01-21] MEDS ORDERED: Insulin Infusion 100unit/100mL 100 UNIT/100 ML BAG IV SCH (20:00)
[2021-01-21] MEDS ORDERED: LORazepam 2 mg VIAL 1 ml IV PUSH SCH (20:00)
[2021-01-21] MEDS ORDERED: Ondansetron 4 mg VIAL 2 MG/ML 2 ml VIAL IV PRN (20:05)
[2021-01-21 20:12] LABS: Alcohol, S < 10 mg/dL (<10)
[2021-01-21] MEDS: Sodium Chloride CONC. 4 MEQ/ML 77 MEQ in D10W 1000 ml BAG 1,000 ML IV SCH (20:49)
[2021-01-21] MEDS: Multivitamins/Minerals TAB PO SCH (21:14)
[2021-01-21] MEDS: Heparin 5000 UNITS/ML 1 mL VIAL SUBCUT SCH (21:15)
[2021-01-22] MEDS ORDERED: Dextrose 50% Syringe 50 ml 25 GM/50 ML SYRINGE IV PUSH PRN (00:26)
[2021-01-22 01:54] LABS: Anion Gap 10 mmol/L (2-11); BUN/Creatinine Ratio 11.2 (8-20); Blood Urea Nitrogen 10 mg/dL (6-24); CO2 Carbon Dioxide 21 mmol/L (22-32); Calcium 7.3 mg/dL (8.6-10.3); Chloride 94 mmol/L (101-111); EGFR Non-African American 66.1 (>60); Glucose 92 mg/dL (70-100); Sodium 125 mmol/L (135-145)
[2021-01-22 02:24] LABS: Potassium, Whole Blood 4.4 mmol/L (3.4-4.5)
[2021-01-22 05:58] LABS: BUN/Creatinine Ratio 11.4 (8-20); EGFR African American 91.8 (>60); EGFR Non-African American 75.8 (>60); Potassium 3.6 mmol/L (3.5-5.0)
[2021-01-22 06:03] LABS: Calcium 6.7 mg/dL (8.6-10.3); Magnesium 1.6 mg/dL (1.9-2.7)
[2021-01-22 06:13] LABS: Phosphorus 1.7 mg/dL (2.5-5.0)
[2021-01-22] MEDS: Sodium Chloride CONC. 4 MEQ/ML 77 MEQ in D10W 1000 ml BAG 1,000 ML IV SCH (06:13)
[2021-01-22] MEDS: Heparin 5000 UNITS/ML 1 mL VIAL SUBCUT SCH ×3 (06:14→21:03)
[2021-01-22 06:40] LABS: ABS Eosinophils 0.1 10^3/ul (0-0.6); ABS Lymphocytes 1.4 10^3/ul (1.0-4.8); ABS Monocytes 0.4 10^3/ul (0-0.8); ABS Neutrophils 4.7 10^3/ul (1.5-7.7); Eosinophil % 1.7 %; Hematocrit 40 % (35-47); Hemoglobin 13.7 g/dL (12.0-16.0); Lymphocyte % 20.6 %; Mean Corpuscular HGB Conc 34 g/dL (31-36); Mean Corpuscular Hemoglobin 34 pg (27-31); Mean Corpuscular Volume 100 fL (80-97); Nucleated Red Blood Cells % 0.2; Platelet Count 116 10^3/uL (150-450); Red Blood Count 4.04 10^6 /uL (3.70-4.87); Red Cell Distribution Width 14 % (10-15); White Blood Count 6.6 10^3/uL (3.5-10.8)
[2021-01-22] MEDS ORDERED: Potassium Chlor 20 meq TAB.ER PO ONE (07:07)
[2021-01-22] MEDS ORDERED: Magnesium Sulfate 2 gm BAG 2 GM/50 ML BAG IVPB ONE (07:07)
[2021-01-22] MEDS ORDERED: Potassium Phosphate IV 15 MMOLE in NS 0.9% 250 ml 250 ML IVPB ONE (08:00)
[2021-01-22] MEDS: Multivitamins/Minerals TAB PO SCH (08:20)
[2021-01-22 09:38] LABS: BUN/Creatinine Ratio 11.1 (8-20); Blood Urea Nitrogen 8 mg/dL (6-24); CO2 Carbon Dioxide 21 mmol/L (22-32); Calcium 6.7 mg/dL (8.6-10.3); Chloride 93 mmol/L (101-111); EGFR African American 102.1 (>60); EGFR Non-African American 84.4 (>60); Glucose 146 mg/dL (70-100); Sodium 124 mmol/L (135-145)
[2021-01-22 10:30] LABS: Anion Gap 10 mmol/L (2-11)
[2021-01-22 12:05] LABS: Potassium, Whole Blood 4.3 mmol/L (3.4-4.5)
[2021-01-22 12:54] LABS: Triglycerides 826 mg/dL
[2021-01-22 13:49] LABS: CO2 Carbon Dioxide 24 mmol/L (22-32); Calcium 7.1 mg/dL (8.6-10.3); Chloride 95 mmol/L (101-111); Sodium 128 mmol/L (135-145)
[2021-01-22 13:53] LABS: Anion Gap 9 mmol/L (2-11)
[2021-01-22 13:55] LABS: BUN/Creatinine Ratio 8.4 (8-20); Blood Urea Nitrogen 7 mg/dL (6-24); EGFR African American 86.7 (>60); EGFR Non-African American 71.6 (>60); Glucose 129 mg/dL (70-100)
[2021-01-23] MEDS: Heparin 5000 UNITS/ML 1 mL VIAL SUBCUT SCH ×3 (05:58→20:50)
[2021-01-23 06:01] LABS: ABS Eosinophils 0.1 10^3/ul (0-0.6); ABS Lymphocytes 1.2 10^3/ul (1.0-4.8); ABS Monocytes 0.4 10^3/ul (0-0.8); ABS Neutrophils 3.6 10^3/ul (1.5-7.7); Eosinophil % 1.5 %; Hematocrit 37 % (35-47); Hemoglobin 12.5 g/dL (12.0-16.0); Lymphocyte % 22.6 %; Mean Corpuscular HGB Conc 34 g/dL (31-36); Mean Corpuscular Hemoglobin 33 pg (27-31); Mean Corpuscular Volume 96 fL (80-97); Mean Platelet Volume 8.9 fL (7.4-10.4); Platelet Count 103 10^3/uL (150-450); Red Blood Count 3.83 10^6 /uL (3.70-4.87); Red Cell Distribution Width 14 % (10-15); White Blood Count 5.4 10^3/uL (3.5-10.8)
[2021-01-23 06:17] LABS: BUN/Creatinine Ratio 5.6 (8-20); Calcium 7.8 mg/dL (8.6-10.3); EGFR African American 102.1 (>60); EGFR Non-African American 84.4 (>60); Potassium 3.3 mmol/L (3.5-5.0)
[2021-01-23] MEDS ORDERED: Potassium Chlor 20 meq TAB.ER PO ONE (07:46)
[2021-01-23] MEDS: Multivitamins/Minerals TAB PO SCH (08:30)
[2021-01-23 08:31] LABS: Magnesium 2.4 mg/dL (1.9-2.7); Phosphorus 1.6 mg/dL (2.5-5.0)
[2021-01-23] MEDS ORDERED: Potassium Acid Phos 500 mg TAB PO ONE (11:17)
[2021-01-23] MEDS ORDERED: Diclofenac Sod EC 25 mg TAB PO PRN (15:28)
[2021-01-23 17:43] LABS: Anion Gap 5 mmol/L (2-11); Blood Urea Nitrogen 4 mg/dL (6-24); CO2 Carbon Dioxide 24 mmol/L (22-32); Calcium 8.2 mg/dL (8.6-10.3); Chloride 100 mmol/L (101-111); EGFR Non-African American 91.7 (>60); Glucose 126 mg/dL (70-100); Potassium 3.9 mmol/L (3.5-5.0); Sodium 129 mmol/L (135-145); Triglycerides 603 mg/dL
[2021-01-23 17:49] LABS: Phosphorus < 1.0 mg/dL (2.5-5.0)
[2021-01-24] MEDS: Heparin 5000 UNITS/ML 1 mL VIAL SUBCUT SCH ×2 (05:40→14:15)
[2021-01-24] MEDS: Multivitamins/Minerals TAB PO SCH (08:26)
[2021-01-24 08:56] LABS: ABS Eosinophils 0.1 10^3/ul (0-0.6); ABS Lymphocytes 0.9 10^3/ul (1.0-4.8); ABS Monocytes 0.4 10^3/ul (0-0.8); ABS Neutrophils 3.5 10^3/ul (1.5-7.7); Eosinophil % 2.8 %; Hematocrit 36 % (35-47); Hemoglobin 12.4 g/dL (12.0-16.0); Lymphocyte % 17.3 %; Mean Corpuscular HGB Conc 34 g/dL (31-36); Mean Corpuscular Hemoglobin 33 pg (27-31); Mean Corpuscular Volume 97 fL (80-97); Platelet Count 109 10^3/uL (150-450); Red Blood Count 3.75 10^6 /uL (3.70-4.87); Red Cell Distribution Width 14 % (10-15)
[2021-01-24 09:12] LABS: Albumin 3.4 g/dL (3.2-5.2); BUN/Creatinine Ratio 7.7 (8-20); Calcium 8.7 mg/dL (8.6-10.3); EGFR African American 114.9 (>60); Globulin 3.3 g/dL (2-4); Potassium 3.9 mmol/L (3.5-5.0); Total Bilirubin 2.1 mg/dL (0.2-1.0); Total Protein 6.7 g/dL (6.4-8.9)
[2021-01-24 11:42] VITALS: BP 107/70
[2021-01-24 12:03] LABS: Phosphorus 1.6 mg/dL (2.5-5.0)
[2021-01-24] MEDS ORDERED: Potassium Phosphate IV 15 MMOLE in NS 0.9% 250 ml 250 ML IVPB ONE (13:30)
[2021-01-24] MEDS ORDERED: Potassium Phosphate IV 10 MMOLE in NS 0.9% 250 ml 250 ML IVPB ONE (13:30)
== END 2021-01-24 19:40 | disposition home or self-care (01) | DRG 282 ==
LOC: ED 10:14 → ICU 19:03 → MEDTELE 01-23 15:50
PROVIDERS: ADMIT Student in an Organized Health Care Education/Training Program; ATTEND Student in an Organized Health Care Education/Training Program